=== PATIENT | female | born 1980 | race Hispanic/Latino ===

== ENCOUNTER 2017-01-15 09:49 | Outpatient (CLI) | payer OTHER | END 2017-01-15 09:50 | disposition home or self-care (01) | LOC: DTY/OP 09:49 | PROVIDERS: ATTEND Surgery | DX: Z00.00 Encounter for general adult medical examination without abnormal findings (principal); I10 Essential (primary) hypertension | CPT/HCPCS: 97802 ==

== ENCOUNTER 2017-02-13 09:38 | Outpatient (CLI) | payer OTHER | END 2017-02-13 09:39 | disposition home or self-care (01) | LOC: DTY/OP 09:38 | PROVIDERS: ATTEND Surgery | DX: I10 Essential (primary) hypertension (principal) | CPT/HCPCS: 97802 ==

== ENCOUNTER 2017-06-27 08:15 | Outpatient (CLI) | payer OTHER ==
[2017-06-27 10:08] LABS: #Eosinphils 0.1 thou/uL (0.0-0.7); #Lymphocytes 3.3 thou/uL (1.20-3.40); #Monocytes 0.6 thou/uL (0.11-0.59); #Neutrophils 4.1 thou/uL (1.40-6.50); %Basophils 0.6 % (0.0-1.0); %Eosinophils 1.2 % (0.0-10.0); %Lymphocytes 40.5 % (21.0-51.0); %Neutrophils 50.8 % (42.0-75.0); Hemoglobin 13.8 g/dL (12.0-16.0); Mean Corpuscular HGB CONC 33.3 g/dL (32.0-36.0); Mean Corpuscular Hemoglobin 28.9 pg (27.0-31.0); Mean Corpuscular Volume 86.8 fl (81.0-99.0); Platelet Count 245 thou/uL (130-400); Red Blood Cell (RBC) Count 4.76 mill/uL (4.20-5.40); White Blood Cell (WBC) Count 8.1 thou/uL (4.8-10.8)
[2017-06-27 10:14] LABS: BHCG - Serum Negative (NEGATIVE); Pregs Control Background? CLEAR/WHITE (CLR/WHITE); Pregs Control Bar Appear? YES (CONTROL BAR)
[2017-06-27 10:32] LABS: ALT (SGPT) 53 U/L (8-55); AST (SGOT) 39 U/L (5-34); Albumin 4.2 g/dL (3.5-5.0); Alkaline Phosphatase 85 U/L (40-150); Anion Gap 12 mmol/L (10-20); BUN (Urea Nitrogen) 8 mg/dL (7.0-18.7); Bilirubin, Direct 0.2 mg/dL (0.1-0.3); Bilirubin, Total 0.5 mg/dL (0.2-1.2); Calc. Creatinine Clearance 0 mL/min (70-130); Calcium 9.4 mg/dL (7.8-10.44); Carbon Dioxide 24 mmol/L (22-29); Chloride 105 mmol/L (98-107); Estimated GFR-MDRD 81; Globulin 2.9 g/dL (2.4-3.5); Glucose 92 mg/dL (70-105); Potassium 4.3 mmol/L (3.5-5.1); Protein, Total 7.1 g/dL (6.0-8.3); Sodium 137 mmol/L (136-145)
--- NOTE | 2017-06-27 10:55 | RAD ---
TWO VIEWS CHEST: Date: 06-27-17 Provided Clinical History: Pre op. FINDINGS: Cardiac and mediastinal silhouette is within normal limits. There is a nodular density involving the left mid lung zone on the frontal view, not localized on the lateral. Lungs appear otherwise clear. N o pleural fluid or pneumothorax apparent. IMPRESSION: Possible left sided pulmonary nodule. Correlation with chest CT is recommended. Code T
[2017-06-27 13:00] LABS: Hemoglobin A1c 4.9 % (4.0-6.0)
== END 2017-06-27 08:16 | disposition home or self-care (01) ==
LOC: LABBT 08:15
PROVIDERS: ATTEND Surgery
DX: Z01.818 Encounter for other preprocedural examination (principal); E66.01 Morbid (severe) obesity due to excess calories
CPT/HCPCS: 71046; 80053; 80076; 83036; 84703; 85025; 93005; 93010

== ENCOUNTER 2017-06-27 08:30 | Inpatient (IN) | payer OTHER ==
[2017-07-04] MEDS ORDERED: Heparin 5,000 UNITS/ML VIAL ONE (06:19)
[2017-07-04] MEDS ORDERED: CEFAZOLIN/Water 2 GM/20 ML SYRINGE ONE (06:19)
[2017-07-04] MEDS ORDERED: Bupivacaine/Epinephrine 0.25% 30 ML VIAL ONE (06:44)
[2017-07-04] MEDS ORDERED: Midazolam HCl 2 mg/2 ml Vial ONE ×2 (07:17→07:23)
[2017-07-04] MEDS ORDERED: Lidocaine 1% (PF) 30 ML VIAL ONE (07:17)
[2017-07-04] MEDS ORDERED: Fentanyl 250 MCG/5 ML VIAL ONE (07:17)
[2017-07-04] MEDS ORDERED: Zolpidem Tartrate 5 MG TAB PO PRN ×2 (07:19→09:07)
[2017-07-04] MEDS ORDERED: HYDROmorphone 2 MG/ML VIAL SLOW IVP PRN (07:19)
[2017-07-04] MEDS ORDERED: Naloxone HCl 0.4 mg/ml Vial IV PRN ×2 (07:19→09:07)
[2017-07-04] MEDS ORDERED: Meperidine HCl/PF 25 MG/ML VIAL SLOW IVP PRN (07:19)
[2017-07-04] MEDS ORDERED: Promethazine HCl 25 MG/ML VIAL SLOW IVP PRN (07:19)
[2017-07-04] MEDS ORDERED: diphenhydrAMINE 50 MG/ML VIAL IVP PRN ×3 (07:19→09:07)
[2017-07-04] MEDS ORDERED: diphenhydrAMINE 25 MG CAP PO PRN ×2 (07:19→09:07)
[2017-07-04] MEDS ORDERED: Ondansetron HCl/PF 4 MG/2 ML Vial IVP PRN ×4 (07:19→09:07)
[2017-07-04] MEDS ORDERED: HYDROmorphone 10 mg/100 ml CADD IVPB PRN (07:19)
[2017-07-04] MEDS ORDERED: diphenhydrAMINE 50 MG/ML VIAL IM PRN ×2 (07:19→09:07)
[2017-07-04] MEDS ORDERED: Promethazine HCl 25 MG/ML VIAL IM PRN ×4 (07:19→09:07)
[2017-07-04] MEDS ORDERED: Communication Order-Pharmacy FS SCH ×2 (07:30→09:15)
[2017-07-04] MEDS ORDERED: Dextrose 5% in Water 1,000 ML IV PRN (09:01)
[2017-07-04] MEDS ORDERED: hydrALAZINE 20 MG/ML VIAL SLOW IVP PRN (09:01)
[2017-07-04] MEDS ORDERED: Dextrose 50% Abboject 50 ML SYRINGE SLOW IVP PRN (09:01)
[2017-07-04] MEDS ORDERED: Hydrocodone-Acetamin 15 ML UDCUP PO PRN (09:01)
[2017-07-04] MEDS ORDERED: Ketorolac Tromethamine 30 MG/ML VIAL IVP PRN (09:07)
[2017-07-04] MEDS ORDERED: Fentanyl 5000 MCG/250 ML CADD IVPB PRN (09:07)
--- NOTE | 2017-07-04 10:29 | OP ---
PREOPERATIVE DIAGNOSIS: Morbid obesity. SURGEON: Aiden Coley M.D. PROCEDURE PERFORMED: Laparoscopic sleeve gastrectomy with esophagogastroscopy. INDICATIONS: A 37-year-old female, morbidly obese, who has attempted multiple weight loss programs w [facility]. FINDINGS: A 38 [place] bougie used. PROCEDURE IN DETAIL: After informed consent was obtained, the patient was taken to the operating fritz m and given general endotracheal anesthesia and placed in the supine position. The abdomen was prepp ed and draped in usual fashion. Local anesthesia infiltrated subcutaneously and deep. A 12 mm incis ion was performed approximately 8 inches below the xiphoid slightly to the left. Veress needle inser gretel. Drop test performed. Pneumoperitoneum was created to a volume of 2 liters of carbon dioxide. Utilizing a bladeless 12 mm trocar and 0 degree laparoscope direct visual entry in the abdominal cavi ty was performed. Pneumoperitoneum was created to a pressure of 15 mmHg. The patient placed in stee p reverse Trendelenburg position and Nathansen liver retractor inserted. Left lobe of liver retracte d superiorly. The pylorus identified and a 12 mm port placed on the right beneath it, two 12s placed left subcostal. The omentum was taken off the greater curvature 5 cm from the pylorus utilizing the LigaSure. Short gastrics divided with LigaSure, left crura defined with the LigaSure. A 38-[place] bougie inserted and directed into the antrum. The linear 60 mm green load stapler used to divide the antrum to the bougie, two gold loads used along the bougie, and then a series of blues through the a ngle of His. I noticed that there was a little bit of serosal dehiscence and that was repaired with a [id number] of 2-0 silk suture tied intracorporeally. This was at the proximal area of the fir st load. This was done with the bougie still in place. The bougie removed. Then intraoperative end oscopy was performed. The video endoscope inserted under direct vision and advanced into the sleeve. The staple line inspected. There was no bleeding. Staple line then tested by inflating the new st omach with pressurized air under water. There was no air leak. Stomach decompressed. Scope removed . Remnant stomach removed from the abdomen through the left lateral port site. The fascia closed wi th 0 Vicryl suture and the GraNee needle. Trocars and retractors removed. The skin closed with inte rrupted 4-0 Rapide. Dermabond applied. The patient tolerated the procedure well and was transferred to recovery in good condition. Sponge and needle count verified correct x2.
[2017-07-04] MEDS ORDERED: Glycopyrrolate 0.2 MG/ML 5 ML SYRINGE ONE (15:00)
[2017-07-04] MEDS ORDERED: Ondansetron HCl/PF 4 MG/2 ML Vial ONE (15:00)
[2017-07-04] MEDS ORDERED: PROPOFOL 200 MG/20 ML VIAL ONE (15:00)
[2017-07-04] MEDS ORDERED: Ketorolac Tromethamine 30 MG/ML VIAL ONE (15:00)
[2017-07-04] MEDS ORDERED: Lidocaine 1% PF 5 ML VIAL ONE (15:00)
[2017-07-04] MEDS: Acetaminophen 1,000 MG in Premix Bag 1 BAG IVPB SCH ×3 (15:02→23:21)
[2017-07-04] MEDS: Ketorolac Tromethamine 30 MG/ML VIAL IVP SCH ×3 (15:03→23:18)
[2017-07-04] MEDS: D5 1/2 NS w/20 mEq KCL 1,000 ML IV SCH ×3 (15:04→23:21)
[2017-07-04] MEDS: CEFAZOLIN/Water 2 GM/20 ML SYRINGE SLOW IVP SCH ×2 (16:18→23:14)
[2017-07-05 05:04] LABS: #Lymphocytes 2.5 thou/uL (1.20-3.40); #Monocytes 0.9 thou/uL (0.11-0.59); #Neutrophils 9.3 thou/uL (1.40-6.50); %Basophils 0.1 % (0.0-1.0); %Eosinophils 0.1 % (0.0-10.0); %Lymphocytes 19.8 % (21.0-51.0); %Monocytes 7.1 % (0.0-10.0); %Neutrophils 72.9 % (42.0-75.0); Hemoglobin 12.1 g/dL (12.0-16.0); Mean Corpuscular HGB CONC 33.2 g/dL (32.0-36.0); Mean Corpuscular Hemoglobin 29.9 pg (27.0-31.0); Mean Corpuscular Volume 90.2 fl (81.0-99.0); Mean Platelet Volume 9.1 fL (7.4-10.4); Platelet Count 227 thou/uL (130-400); RBC Distribution Width 12.3 % (11.5-14.5); Red Blood Cell (RBC) Count 4.04 mill/uL (4.20-5.40); White Blood Cell (WBC) Count 12.8 thou/uL (4.8-10.8)
[2017-07-05 05:30] LABS: Anion Gap 7 mmol/L (10-20); BUN (Urea Nitrogen) 6 mg/dL (7.0-18.7); Calc. Creatinine Clearance 234 mL/min (70-130); Carbon Dioxide 28 mmol/L (22-29); Chloride 106 mmol/L (98-107); Estimated GFR-MDRD 82; Glucose 107 mg/dL (70-105); Potassium 4.3 mmol/L (3.5-5.1); Sodium 137 mmol/L (136-145)
[2017-07-05] MEDS: Ketorolac Tromethamine 30 MG/ML VIAL IVP SCH ×2 (05:54→12:10)
[2017-07-05] MEDS: Acetaminophen 1,000 MG in Premix Bag 1 BAG IVPB SCH ×2 (05:55→12:10)
[2017-07-05] MEDS: D5 1/2 NS w/20 mEq KCL 1,000 ML IV SCH (08:41)
[2017-07-05] MEDS ORDERED: Pantoprazole 40 MG VIAL IVP SCH (09:00)
[2017-07-05] MEDS ORDERED: Enoxaparin Sodium 40 MG/0.4 ML SYRINGE SC SCH (09:00)
[2017-07-05 10:23] VITALS: BMI 52.4
--- NOTE | 2017-07-05 10:33 | RAD ---
UPPER GI SERIES: DTAE: 07/05/17. HISTORY: A 37-year-old female with a history of gastric sleeve. RADIATION DOSIMETRY: 2.2 minutes of fluoroscopy and AK of 389 mGy. Gastrografin was given to the patient. A total of 15 mL was given. Spot images obtained. The esophagus is unremarkable. The patient has had a gastric sleeve. Contrast is slow to pass the s tomach but does pass the gastroesophageal junction passing through the gastric lumen and into the ant rum. No evidence of leakage of contrast seen. IMPRESSION: Gastric sleeve is noted. No evidence of extravasation of contrast seen outside of the gastrointestin al lumen. POS: [facility]
[2017-07-05 11:26] VITALS: BP 142/77; TEMP 98.1
--- NOTE | 2017-07-05 17:40 | DIS ---
DATE OF ADMISSION: 07/04/2017 DATE OF DISCHARGE: 07/05/2017 DISCHARGE DIAGNOSIS: Morbid obesity. PROCEDURES DURING ADMISSION: Laparoscopic sleeve gastrectomy, intraoperative esophagogastroscopy, po stoperative Gastrografin swallow. HOSPITAL COURSE: The patient was admitted, taken to the operating room where she underwent sleeve ga strectomy. Postoperatively, has done well. Swallow was fine. She is tolerating liquids well. She is now discharged home in good condition on Tylenol #3 elixir and Zofran. She will follow up with me in 2 weeks.
== END 2017-07-05 14:00 | disposition home or self-care (01) | DRG 621 ==
LOC: SURG A 07-04 05:55 → SJJU 07-04 11:05
PROVIDERS: ADMIT Surgery; ATTEND Surgery
PROC: 0DB64Z3 Excision of Stomach, Percutaneous Endoscopic Approach, Vertical (ICD-10-PCS; principal; 2017-07-04)
DX: E66.01 Morbid (severe) obesity due to excess calories (principal); F32.9 Major depressive disorder, single episode, unspecified; Z68.43 Body mass index [BMI] 50.0-59.9, adult
CPT/HCPCS: 36415; 74241; 80048; 85025; 88307; 88312; 94760; C9113; J0131; J1644; J1650; J1885; J2001; J2250; J2405; J2704; J3010

== ENCOUNTER 2017-07-25 10:08 | Emergency (ER) | payer OTHER ==
[2017-07-25 11:08] LABS: #Basophils 0.1 thou/uL (0.0-0.2); #Eosinphils 0.1 thou/uL (0.0-0.7); #Lymphocytes 2.8 thou/uL (1.20-3.40); #Monocytes 0.5 thou/uL (0.11-0.59); #Neutrophils 3.4 thou/uL (1.40-6.50); %Basophils 1.1 % (0.0-1.0); %Eosinophils 1.7 % (0.0-10.0); %Lymphocytes 40.4 % (21.0-51.0); %Monocytes 7.4 % (0.0-10.0); %Neutrophils 49.3 % (42.0-75.0); Hemoglobin 13.7 g/dL (12.0-16.0); Mean Corpuscular HGB CONC 33.5 g/dL (32.0-36.0); Mean Corpuscular Hemoglobin 29.3 pg (27.0-31.0); Mean Corpuscular Volume 87.5 fl (81.0-99.0); Platelet Count 208 thou/uL (130-400); RBC Distribution Width 12.5 % (11.5-14.5); Red Blood Cell (RBC) Count 4.68 mill/uL (4.20-5.40)
[2017-07-25 11:26] LABS: ALT (SGPT) 86 U/L (8-55); AST (SGOT) 41 U/L (5-34); Albumin 4.1 g/dL (3.5-5.0); Alkaline Phosphatase 93 U/L (40-150); Anion Gap 10 mmol/L (10-20); BUN (Urea Nitrogen) 11 mg/dL (7.0-18.7); Bilirubin, Total 0.5 mg/dL (0.2-1.2); Calc. Creatinine Clearance 0 mL/min (70-130); Calcium 9.4 mg/dL (7.8-10.44); Carbon Dioxide 27 mmol/L (22-29); Chloride 106 mmol/L (98-107); Estimated GFR-MDRD 81; Globulin 2.7 g/dL (2.4-3.5); Glucose 88 mg/dL (70-105); Potassium 4.1 mmol/L (3.5-5.1); Protein, Total 6.8 g/dL (6.0-8.3); Sodium 139 mmol/L (136-145)
== END 2017-07-25 12:25 | disposition home or self-care (01) ==
LOC: ERS 10:08
DX: Z48.815 Encounter for surgical aftercare following surgery on the digestive system (principal); I10 Essential (primary) hypertension; E66.9 Obesity, unspecified; F17.210 Nicotine dependence, cigarettes, uncomplicated; Z79.899 Other long term (current) drug therapy
CPT/HCPCS: 36415; 80053; 85025; 99283

== ENCOUNTER 2019-03-17 09:44 | Outpatient (CLI) | payer OTHER ==
--- NOTE | 2019-03-17 11:09 | MMO ---
Bilateral MAMMO Bilat Screen [facility]. CLINICAL HISTORY: Patient is 38 years old and is seen for screening. The patient has no family history of breast cancer. The patient has no personal history of cancer. VIEWS: The views performed were: bilateral craniocaudal with tomosynthesis and bilateral mediolateral oblique with tomosynthesis. This study has been interpreted with the assistance of computer-aided detection. MAMMOGRAM FINDINGS: The breasts are heterogeneously dense, which could obscure a lesion on mammography. There are no suspicious masses, suspicious calcifications, or new areas of architectural distortion. IMPRESSION: THERE IS NO MAMMOGRAPHIC EVIDENCE OF MALIGNANCY. A ROUTINE FOLLOW-UP MAMMOGRAM IN 1 YEAR IS RECOMMENDED. THE RESULTS OF THIS EXAM WERE SENT TO THE PATIENT. ACR BI-RADS Category 1 - Negative MAMMOGRAPHY NOTE: 1. A negative mammogram report should not delay a biopsy if a dominant of clinically suspicious mass is present. 2. Approximately 10% to 15% of breast cancers are not detected by mammography. 3. Adenosis and dense breasts may obscure an underlying neoplasm. Reported by: IRINA BROWN MD Electonically Signed: [id number]
== END 2019-03-17 09:45 | disposition home or self-care (01) ==
LOC: BICMAMMO 09:44
PROVIDERS: ATTEND Family Medicine
DX: Z12.31 Encounter for screening mammogram for malignant neoplasm of breast (principal)
CPT/HCPCS: 77063; 77067

== ENCOUNTER 2021-01-04 15:39 | Emergency (ER) | payer OTHER | END 2021-01-04 17:57 | disposition home or self-care (01) | LOC: ERS 15:39 | DX: S76.012A Strain of muscle, fascia and tendon of left hip, initial encounter (principal); I10 Essential (primary) hypertension; E66.9 Obesity, unspecified; F17.210 Nicotine dependence, cigarettes, uncomplicated; X58.XXXA Exposure to other specified factors, initial encounter | CPT/HCPCS: 99283 ==